=== PATIENT | male | born 1960 | race Caucasian/White ===

== ENCOUNTER → 2021-12-22 | Outpatient (CLI) | payer MEDICARE | LOC: KOH-I 11:11 | DX: R06.2 Wheezing (principal); M25.562 Pain in left knee; M25.561 Pain in right knee; Q74.1 Congenital malformation of knee | CPT/HCPCS: 71046; 73564 ==

== ENCOUNTER → 2022-01-05 | Outpatient (CLI) | payer MEDICARE | LOC: MRI 10:30 | DX: Q74.1 Congenital malformation of knee (principal); S83.511D Sprain of anterior cruciate ligament of right knee, subsequent encounter; S83.241D Other tear of medial meniscus, current injury, right knee, subsequent encounter; M71.21 Synovial cyst of popliteal space [Baker], right knee; M17.11 Unilateral primary osteoarthritis, right knee | CPT/HCPCS: 73721 ==